=== PATIENT | female | born 1960 | race Caucasian/White ===

== ENCOUNTER 2022-11-09 10:24 | Outpatient (CLI) | payer BC, SELFPAY ==
[2022-11-09 10:33] VITALS: BP 143/91; PULSE 66; RESP 16; TEMP 36.6; O2SAT 93
--- NOTE | 2022-11-09 13:15 | PC.NURSE ---
WOUND VAC DRESSING CHANGE COMPLETED ON 11/09 AT 1033. PATIENT HAD FRIEND WITH FOR EDUCATION AND BANDOLEER PACKER SHOWED HOW TO CHANGE PROPERLY. ALSO EDUCATED ON WET TO DRY DRESSING CHANGES IF WOUND VAC MALFUNCTION AND CANT BE SEEN RIGHT AWAY. PATIENT AND CG VERBALIZED UNDERSTANDING. SENT WITH EXTRA WOUND CARE SUPPLIES FOR WET TO DRY - 1 ROLL KERLIX, REMAINDER OF SALINE BOTTLE FROM DRESSING CHANGE, 4X4 GAUZE PACK, 2 ABD'S, ROLL OF PAPER TAPE. PRESCRIPTION SENT WITH PATIENT FOR OXY TO PRE MEDICATE 30 MIN-1 HR PRIOR TO DRESSING CHANGE. PT VERBALIZED UNDERSTANDING.
== END 2022-11-09 13:21 | disposition home or self-care (01) ==
LOC: MS OUT 10:29 → MEDSURG 10:36 → MS OUT 13:20
PROVIDERS: PCP Family Medicine; Visit Provider Surgery
DX: E66.9 Obesity, unspecified (principal); L03.311 Cellulitis of abdominal wall; I10 Essential (primary) hypertension
CPT/HCPCS: 99211

== ENCOUNTER 2022-11-14 09:37 | Outpatient (CLI) | payer BC, SELFPAY | END 2022-11-14 09:38 | disposition home or self-care (01) | PROVIDERS: PCP Family Medicine; Visit Provider Surgery | DX: M72.6 Necrotizing fasciitis (principal); B96.6 Bacteroides fragilis [B. fragilis] as the cause of diseases classified elsewhere | CPT/HCPCS: 11042; 11045; 97605 ==

== ENCOUNTER 2022-11-21 08:02 | Outpatient (CLI) | payer BC, SELFPAY | END 2022-11-21 08:03 | disposition home or self-care (01) | LOC: WOUND 08:02 | PROVIDERS: PCP Family Medicine; Visit Provider Surgery | DX: M72.6 Necrotizing fasciitis (principal) | CPT/HCPCS: 97597; 97605 ==

== ENCOUNTER 2022-11-28 08:31 | Outpatient (CLI) | payer BC, SELFPAY | END 2022-11-28 08:32 | disposition home or self-care (01) | LOC: WOUND 08:31 | PROVIDERS: PCP Family Medicine; Visit Provider Surgery | DX: M72.6 Necrotizing fasciitis (principal) | CPT/HCPCS: 97605; 99213 ==

== ENCOUNTER 2022-12-05 11:38 | Outpatient (CLI) | payer BC, SELFPAY | END 2022-12-05 11:39 | disposition home or self-care (01) | LOC: WOUND 11:38 | PROVIDERS: PCP Family Medicine; Visit Provider Surgery | DX: M72.6 Necrotizing fasciitis (principal) | CPT/HCPCS: 97597; 97605 ==

== ENCOUNTER 2022-12-12 09:09 | Outpatient (CLI) | payer BC, SELFPAY | END 2022-12-12 09:10 | disposition home or self-care (01) | LOC: WOUND 09:09 | PROVIDERS: PCP Family Medicine; Visit Provider Surgery | DX: M72.6 Necrotizing fasciitis (principal) | CPT/HCPCS: 97602 ==

== ENCOUNTER 2022-12-26 08:52 | Outpatient (CLI) | payer BC, SELFPAY | END 2022-12-26 08:53 | disposition home or self-care (01) | LOC: WOUND 08:52 | PROVIDERS: PCP Family Medicine; Visit Provider Surgery | DX: M72.6 Necrotizing fasciitis (principal) | CPT/HCPCS: 97597; 99212 ==

== ENCOUNTER 2022-12-31 11:22 | Outpatient (CLI) | payer BC, SELFPAY | END 2022-12-31 11:23 | disposition home or self-care (01) | LOC: WOUND 11:22 | PROVIDERS: PCP Family Medicine; Visit Provider Surgery | DX: M72.6 Necrotizing fasciitis (principal) | CPT/HCPCS: 99211 ==

== ENCOUNTER 2023-01-02 08:10 | Outpatient (CLI) | payer BC, SELFPAY | END 2023-01-02 08:11 | disposition home or self-care (01) | LOC: WOUND 08:10 | PROVIDERS: PCP Family Medicine; Visit Provider Surgery | DX: M72.6 Necrotizing fasciitis (principal) | CPT/HCPCS: 99212 ==

== ENCOUNTER 2023-02-14 07:09 | Day surgery (SDC) | payer BC, SELFPAY ==
[2023-02-14] VITALS (7 sets, daily range): BP systolic 121–134; BP diastolic 67–78; PULSE 57–70; RESP 16; TEMP 36.4–36.9; O2SAT 96–99; BMI 68.3
[2023-02-14] MEDS: LACTATED RINGERS 1000 ML 1,000 ML 100 ML IV (07:25)
[2023-02-14] MEDS: SODIUM CHLORIDE 0.9 % (FLUSH) 10 ML SYRINGE IVF (07:38)
[2023-02-14] MEDS: SCOPOLAMINE 1 MG/3 DAY PATCH 1 PATCH TRANSDERMA (07:47)
--- NOTE | 2023-02-14 08:26 | W.PM.H&PU ---
History & Physical Update History & Physical Update H&P Reviewed and patient assessed: No changes noted H&P Updates: Preoperative diagnosis: Postmenopausal bleeding with thickened endometrial stripe on ultrasound Planned procedures: Hysteroscopy, possible polypectomy, dilation and curettage Physical exam: General: No acute distress Psych: Alert and oriented x3, full affect HEENT: Normocephalic, atraumatic Heart: Regular rate and rhythm, no murmur rub or gallop Lungs: Clear to auscultation bilaterally Type and screen pending
[2023-02-14] MEDS: LIDOCAINE 1% MDV 10 ML INJECTION (09:24)
--- NOTE | 2023-02-14 09:53 | W.ANESCHARGE ---
Anesthesia Charges Start Date/Time Anesthesia Start Date: 02/14/23 Anesthesia Start Time: 08:59 Stop Date/Time Anesthesia Stop Date: 02/14/23 Anesthesia Stop Time: 09:53
--- NOTE | 2023-02-14 09:54 | W.ANESCHARGE ---
Anesthesia Charges Start Date/Time Anesthesia Start Date: 02/14/23 Anesthesia Start Time: 08:59 Stop Date/Time Anesthesia Stop Date: 02/14/23 Anesthesia Stop Time: 09:53
--- NOTE | 2023-02-14 10:12 | P.GYNPRC_ITS ---
Procedure Note Date of procedure: 02/14/23 Pre-op diagnosis: Postmenopausal bleeding Post-op diagnosis: other (Endometrial polyps) Procedure: Hysteroscopy Polypectomy Dilation and visual curettage Anesthesia: MAC and local (Paracervical block with 10 cc 1% lidocaine) Complications: None Surgeon: Alexia Cuba MD Steam Tunnel Feeder: Anna Sorto Estimated blood loss (mL): 5 IV fluids (mL): 600 Urine Output (mL): 100 Pathology: specimen obtained, sent to pathology Condition: stable Disposition: same day Findings: Saline deficit: 95 mL 1. Upon pelvic exam under anesthesia, the cervix and vagina were normal in appearance. Bimanual exam was otherwise limited by patient habitus. 2. Upon hysteroscopy, the endocervix was normal appearance. The endometrial cavity was of normal shape. Tubal ostia were normal in appearance. It exhibited diffusely thickened endometrium with several small endometrial polyps, the largest approximately 1 cm and in the anterior left lower uterine segment. Procedure Description: Patient was taken to the operating room with IV running. She was positioned in dorsal lithotomy position with her legs fully supported in Yellofin stirrups. Monitored anesthesia care was administered. She was prepped and draped in the usual sterile fashion. Exam under anesthesia was performed for the above-noted findings. Speculum was inserted. Cervix visualized and grasped along the anterior lip with a single-tooth tenaculum. Paracervical block was performed. Cervix was serially dilated to accommodate the TRUCLEAR hysteroscope. This was assembled with saline inflow and outflow in place. The line was flushed of bubbles. The hysteroscope was advanced through the cervix into the endometrial cavity for the above noted findings. The tissue morcellator was then inserted through the operating channel. Window lock was performed. Under direct visualization, the endometrial cavity was circumferentially curetted with the tissue morcellator. The hysteroscope and morcellator were then removed from the uterus. Tenaculum was removed from the anterior lip of cervix. Hemostasis was noted. Patient tolerated procedure well. She was taken to recovery area in stable condition.
[2023-02-14 10:33] LABS: Appearance Urine Clear (Clear); Bilirubin Urine Negative (Negative); Blood Urine Negative (Negative); Color Urine Yellow (Yellow); Glucose Urine Negative (Negative); Ketones Urine Negative (Negative); Leukocyte Esterase Urine Negative (Negative); Nitrite Urine Negative (Negative); Protein Urine Negative (Negative); Urobilinogen Urine 0.2 (0.2-1.0)
== END 2023-02-14 11:29 | disposition home or self-care (01) ==
PROVIDERS: PCP Family Medicine; Visit Provider Obstetrics & Gynecology
PROC: 0UDB8ZZ Extraction of Endometrium, Via Natural or Artificial Opening Endoscopic (ICD-10-PCS; CPT 58558; principal; 2023-02-14 08:30)
DX: N95.0 Postmenopausal bleeding (principal); N84.0 Polyp of corpus uteri
CPT/HCPCS: 58558; 00952; 36415; 81003; 86850; 86900; 86901; 87086; 87186; 88305; A9270; J1100; J1885; J2250; J2405; J2704; J3010; J3490; J7120

== ENCOUNTER 2023-02-16 16:12 | Outpatient (CLI) | payer BC, SELFPAY | END 2023-02-16 16:13 | disposition home or self-care (01) | PROVIDERS: PCP Family Medicine; Visit Provider Registered Nurse | DX: H57.02 Anisocoria (principal) | CPT/HCPCS: 85651; 86140 ==

== ENCOUNTER 2024-11-01 10:17 | Emergency (ER) | payer BC, SELFPAY ==
[2024-11-01 10:25] VITALS: BP 130/81; PULSE 62; RESP 18; TEMP 36.3; O2SAT 96; BMI 73.5
--- NOTE | 2024-11-01 10:40 | CRLHL7_ITS ---
For Patients: As a result of the Century Cures Act, medical imaging exams and procedure reports are released immediately into your electronic medical record. You may view this report before your referring provider. If you have questions, please contact your health care provider. INDICATION: Dizziness, vertigo since yesterday TECHNIQUE: Noncontrast axial CT of the head. Coronal and sagittal reformats. Bone and soft tissue algorithms. COMPARISON: CT head report 09/17/2024 FINDINGS: The ventricles and cortical sulci appear age-appropriate. No midline shift or mass effect. No acute intracranial hemorrhage or extra-axial fluid collection. Hickman-white matter differentiation is grossly maintained. White matter attenuation is within normal limits. Intracranial vessels are unremarkable for technique. Sella and pituitary gland have a normal appearance. The calvarium appears grossly intact. Hyperostosis frontalis interna. Smooth rightward nasal septal deviation. Paranasal sinuses and mastoid air cells are clear. Orbits are unremarkable. IMPRESSION: 1. No CT evidence of acute intracranial abnormality, or significant interval change relative to 09/17/2024. Please note that all CT scans at this facility use dose modulation, iterative reconstruction, and/or weight-based dosing when appropriate to reduce radiation dose to as low as reasonably achievable. Dictated by Cordelia Randolph MD @ 11/01/2024 11:14:34 AM (Electronically Signed)
--- NOTE | 2024-11-01 10:41 | ED.GENADULT ---
HPI - General Adult General Chief complaint: Dizziness/Vertigo Stated complaint: dizziness, nausea Time Seen by Provider: 11/01/24 10:34 History of Present Illness HPI narrative: Patient is a 64 white female has history of hypertension, elevated BMI, palpitations, presents with vertigo. Onset today, the patient denies any different activities. She has had a history of vertigo and dizziness in the past. In fact she reports she had a CT scan a few weeks ago for ?dizziness?. Patient has no other systemic signs of illness no focal neurologic deficit, no visual problem no facial asymmetry, word-finding inability. No facial weakness. No arm or leg weakness she has been ambulating. She feels worse when she lays down and turns her head or sits up quickly. She does not feel quite normal even sitting up but does not feel vertiginous. No chest pain, no shortness of breath, no leg swelling or edema. Related Data Home Medications ?Medication ?Instructions ?Recorded ?Confirmed aspirin 81 mg capsule 81 mg PO DAILY 11/03/22 05/04/24 fexofenadine 180 mg tablet 180 mg PO DAILY 11/03/22 05/04/24 hydrochlorothiazide 25 mg tablet 25 mg PO DAILY 11/03/22 05/04/24 lisinopril 20 mg tablet 20 mg PO DAILY 11/03/22 05/04/24 omeprazole 20 mg capsule,delayed 20 mg PO BID 11/03/22 05/04/24 release allopurinol 100 mg tablet 300 mg PO DAILY 12/28/22 05/04/24 Previous Rx's ?Medication ?Instructions ?Recorded ibuprofen 600 mg tablet 600 mg PO Q6H PRN #30 tabs 02/14/23 fluticasone propionate 50 2 spray intranasal Q12H #16 grams 09/07/23 mcg/actuation nasal spray,suspension levocetirizine 5 mg tablet 5 mg PO QPM #30 tabs 09/07/23 benzonatate 100 mg capsule 100 mg PO TID PRN cough #30 caps 05/04/24 meclizine 25 mg chewable tablet 12.5 mg (1/2 x 25 mg) PO TID PRN 11/01/24 (Antivert) #10 tabs ondansetron HCl 4 mg tablet 4 mg PO Q8H PRN nausea and 11/01/24 vomiting 3 days #10 tabs Allergies Allergy/AdvReac Type Severity Reaction Status Date / Time codeine Allergy Intermediate Verified 11/01/24 10:25 Review of Systems Status of ROS: Reports: 6 or more systems reviewed and unremarkable except as noted in History and below [facility] Medical History Postmenopausal bleeding ?N95.0 - Postmenopausal bleeding (ICD-10) Adenomatous colon polyp ?D12.6 - Benign neoplasm of colon, unspecified (ICD-10) Elbow fracture, left ?S42.402A - Unspecified fracture of lower end of left humerus, initial encounter for closed fracture (ICD-10) History of adverse reaction to anesthesia ?Z92.89 - Personal history of other medical treatment (ICD-10) Osteoarthritis ?M19.90 - Unspecified osteoarthritis, unspecified site (ICD-10) Obstructive sleep apnea ?G47.33 - Obstructive sleep apnea (adult) (pediatric) (ICD-10) Obesity ?E66.9 - Obesity, unspecified (ICD-10) Allergic rhinitis ?J30.9 - Allergic rhinitis, unspecified (ICD-10) Gastroesophageal reflux disease ?K21.9 - Gastro-esophageal reflux disease without esophagitis (ICD-10) Hypertension ?I10 - Essential (primary) hypertension (ICD-10) Surgical History S/P debridement ?Z98.890 - Other specified postprocedural states (ICD-10) History of carpal tunnel release ?Z98.890 - Other specified postprocedural states (ICD-10) History of colonoscopy ?Z98.890 - Other specified postprocedural states (ICD-10) History of laparoscopic cholecystectomy ?Z90.49 - Acquired absence of other specified parts of digestive tract (ICD-10) History of bilateral knee arthroplasty ?Z96.653 - Presence of artificial knee joint, bilateral (ICD-10) Family History Father Alcohol dependence COPD (chronic obstructive pulmonary disease) Cardiovascular disease Diabetes Mother Breast cancer Social History Narrative: 62-year-old female lives independently. 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 She does not smoke. She rarely drinks alcohol. Last tetanus vaccine was in September of 2015. Code status is full. Her friend, Claudia, is primary medical contact What is your current living situation?: I presently have a place to live Problems where you live: no known problems In the past 12 months, utilities in danger of being shut off: no In past 12 months, lack of transportation kept you from medical appts, meetings, work, or getting things needed for daily living: no In the past 12 mos, have been you worried that your food would run out before you had money to buy more?: never true In the past 12 mos, the food you bought just didn't last and you didn't have money to buy more?: never true Highest level of school completed/degree received: high school graduate Smoking Status: Never smoker Do you use any of these nicotine containing products: None Second hand tobacco smoke exposure: No How often do you have a drink containing alcohol: monthly or less How many standard drinks containing alcohol do you have on a typical day: 1 or 2 How often do you have six or more drinks on one occasion: Never AUDIT-C Alcohol total score: 1 Non-prescribed substance use: denies use Caffeine: No How often does anyone, including family, friends and others, physically hurt you: never How often does anyone, including family, friends and others, insult or talk down to you: never How often does anyone, including family, friends and others, threaten you with harm: never How often does anyone, including family, friends and others, scream or curse at you: never Are you using contraception or practicing any form of control: No service: No Exam Narrative: Exam Narrative: Objective: Patient's vital signs are within normal limits Alert orient x3 no apparent distress Elevated BMI No facial asymmetry tongue protrudes midline, smile is normal and symmetric No forehead asymmetry Neck is supple Pulse regular Heart rhythm regular heart murmur Extremities no focal neurologic deficit, no weakness in her arms or legs reported. Const: Vital Signs, click to edit/add: Vital Signs - 24 hr 11/01/24 10:25 Temperature 97.4 F L Pulse Rate [Pulse Oximeter] 62 Respiratory Rate 18 Blood Pressure [Ri ght Upper Arm] 130/81 Pulse Oximetry 96 Oxygen Delivery Me thod Room Air Course Vital Signs Vital signs: Initial Vital Signs Temperature 97.4 F L 06/01/25 10:25 Temperature Source Temporal Artery Scan 11/01/24 10:25 Pulse Rate 62 11/01/24 10:25 Respiratory Rate 18 11/01/24 10:25 Blood Pressure 130/81 11/01/24 10:25 Blood Pressure Mean 97 11/01/24 10:25 Pulse Oximetry 96 11/01/24 10:25 Oxygen Delivery Method Room Air 11/01/24 10:25 Vital Signs Temperature 97.4 F L 11/01/24 10:25 Pulse Rate 62 11/01/24 10:25 Respiratory Rate 18 11/01/24 10:25 Blood Pressure 130/81 11/01/24 10:25 Pulse Oximetry 96 11/01/24 10:25 Oxygen Delivery Method Room Air 11/01/24 10:25 Temperature 97.4 F L 11/01/24 10:25 Pulse Rate 62 11/01/24 10:25 Respiratory Rate 18 11/01/24 10:25 Blood Pressure 130/81 11/01/24 10:25 Pulse Oximetry 96 11/01/24 10:25 Oxygen Delivery Method Room Air 11/01/24 10:25 Medications Administered Medications: Generic Name Dose Route Start Last Admin Trade Name Freq PRN Reason Stop Dose Admin Ondansetron HCl 4 mg 11/01/24 11:38 11/01/24 11:43 Ondansetron 2 Mg/Ml Inj IVP 11/01/24 11:39 4 mg ONCE ONE Administration Discontinued Medications Generic Name Dose Route Start Last Admin Trade Name Freq PRN Reason Stop Dose Admin Sodium Chloride 1,000 mls @ 6,000 mls/hr 11/01/24 10:45 11/01/24 11:47 0.9 % Sodium Chloride 1000 Ml IV 11/01/24 10:54 Infused .Q10M MONSERRAT Infusion Lorazepam 1 mg 11/01/24 10:40 11/01/24 11:03 Lorazepam 1 Mg Tablet PO 11/01/24 10:41 1 mg ONCE ONE Administration Medical Decision Making MDM Narrative Medical decision making narrative: [age] year white female with a history of hypertension elevated BMI with intermittent vertiginous symptoms in the past as well as recent CT scan in the a few weeks ago for ?dizziness?. At this point the patient does not appear stroke-like, but I think a CT scan with of her head would be appropriate to repeat given this seems like a worse case of vertigo. Will give her oral Ativan 1 mg as there is a shortage of IV Ativan, will give 1 L normal saline. Will check electrolytes and labs. Disposition pending findings and her clinical response. Addendum 11:45 a.m.: The patient feels better, got IV fluid, Ativan orally, still has a little bit of nausea will give her some Zofran IV. She got all its fluid bolus as well. She feels less dizzy and more confident. I think we can let her have some Zofran and Antivert at home as needed use sparingly, light activity for the next couple of days follow-up with primary care in the next 2-3 days as needed return to ED sooner problems or concerns. Of note is head CT reviewed by me is negative, radiologist interpreted as negative as well thanks Lab Data Labs: Lab Results 11/01/24 Range/Units 10:45 WBC 5.16 (4.50-11.00) K/uL RBC 4.13 (4.00-5.20) m/uL Hgb 12.4 (12.0-16.0) gm/dL Hct 38.7 (33.0-51.0) % MCV 94 (80-100) fL MCH 30 (26-34) pg MCHC 32 (32-36) gm/dL RDW Coeff of S[place] 14.8 (11.5-15.5) % Plt Count 243 (140-440) K/uL Neut % (Auto) 64.2 (42.0-72.0) % Lymph % (Auto) 23.6 (20-44) % [place] % (Auto) 8.1 (0.0-11.0) % Eos % (Auto) 3.1 (0.0-7.0) % Baso % (Auto) 0.4 (0.0-3.0) % Neut # (Auto) 3.31 (1.7-7.0) K/uL Lymph # (Auto) 1.22 (0.90-2.90) K/uL [place] # (Auto) 0.40 (0.00-0.90) K/UL Eos # (Auto) 0.16 (0.00-0.50) K/uL Baso # (Auto) 0.02 (0.00-0.30) K/uL Abs Immat Gran (auto) 0.03 (0.00-0.30) K/uL Imm/Tot Granulo (auto) 0.6 % Sodium 141 (135-149) mmol/L Potassium 4.2 (3.6-5.1) mmol/L Chloride 103 (96-114) mmol/L Carbon Dioxide 30 (20-32) mmol/L Anion Gap 8 (7-15) mEq/L BUN 21 (7-30) mg/dL Creatinine 1.1 (0.5-1.5) mg/dL Estimated Creat Clear 43.87 Estimated GFR 57 ml/min Glucose 114 (60-115) mg/dL Calcium 9.6 (8.4-10.6) mg/dL Total Bilirubin 0.8 (0.1-1.5) mg/dL Direct Bilirubin 0.4 (0.0-0.5) mg/dL AST 38 H (12-35) U/L ALT 30 (4-35) U/L Alkaline Phosphatase 72 (40-150) U/L C-Reactive Protein 2.5 H (0.5-1.0) mg/dL Total Protein 8.3 (6.0-8.3) g/dL Albumin 4.3 (3.3-5.0) g/dL Discharge Plan Discharge Clinical Impression: Vertigo Patient Disposition: Home w/ Parent or Adult Condition: Improved Additional Instructions: Rest, light activity, Zofran and Antivert as needed. Follow up with regular doctor next 2-3 days, resume activities as tolerated. Activity Level: Light activity Discharge Diet: Heart Healthy (2 gm sodium, low fat) Prescriptions: New meclizine [Antivert] 25 mg tablet,chewable 12.5 mg PO TID PRNQty: 10 0RF ondansetron HCl 4 mg tablet 4 mg PO Q8H PRN (Reason: nausea and vomiting) 3 Days Qty: 10 0RF No Action allopurinol 100 mg tablet 300 mg PO DAILY fluticasone propionate 50 mcg/actuation spray,suspension 2 spray intranasal Q12H Qty: 16 0RF Rx Instructions: administer into each nostril - OK to move to once daily if nostrils get dry levocetirizine 5 mg tablet 5 mg PO QPM Qty: 30 3RF benzonatate 100 mg capsule 100 mg PO TID PRN (Reason: cough) Qty: 30 1RF lisinopril 20 mg tablet 20 mg PO DAILY omeprazole 20 mg capsule,delayed release(DR/EC) 20 mg PO BID hydrochlorothiazide 25 mg tablet 25 mg PO DAILY fexofenadine 180 mg tablet 180 mg PO DAILY aspirin 81 mg capsule 81 mg PO DAILY ibuprofen 600 mg tablet 600 mg PO Q6H PRNQty: 30 0RF Follow Up/Referrals: Michell Christopher DO [Primary Care Provider, Family Practice] Stand Alone Forms: [facility] Info Instructions
--- OUTSIDE RECORDS SUMMARY | 2024-11-01 10:45 | XMS_ITS | Clinical Summary ---
Author Organization [facility] Address [address] [place] [address] Care Team Providers Care Textile Converter Name Role Phone Michell Christopher Primary Care Provider Allergies No known active allergies Medications aspirin (ECOTRIN) 81 mg enteric coated tablet Take 1 Tablet (81 mg) by mouth once daily with a meal. 0 11/14/19 22 Active fluticasone (50 mcg per actuation) nasal solution (FLONASE) INSTILL 2 SPRAYS INTRANASALLY EVERY 12 HOURS INTO NOSTRILS, MOVE TO ONCE DAILY IF NOSTRILS GET TO DRY. 09/07/19 24 Active CPAPIndications: YELENA (obstructive sleep apnea) CPAP machine for home use at pressure 5-16 cm, choice of mask; TJN=344t, Frequency of use=daily 1 Each 11/14/19 24 Active tirzepatide (weight loss) (Zepbound) 2.5 mg/0.5 mL penIndications:O SA on CPAP,Moderate obstructive sleep apnea in adult,Class 3 severe obesity with body mass index (BMI) of 60.0 to 69.9 in adult (HC) Inject 2.5 mg subcutaneous once weekly for 28 days. 2 mL 10/06/19 25 025 Active tirzepatide (weight loss) (Zepbound) 5 mg/0.5 mL penIndications:O SA on CPAP,Moderate obstructive sleep apnea in adult,Class 3 severe obesity with body mass index (BMI) of 60.0 to 69.9 in adult (HC) Inject 5 mg subcutaneous once weekly for 28 days. 2 mL 11/03/19 25 025 Active tirzepatide (weight loss) (Zepbound) 7.5 mg/0.5 mL penIndications:O SA on CPAP,Moderate obstructive sleep apnea in adult,Class 3 severe obesity with body mass index (BMI) of 60.0 to 69.9 in adult (HC) Inject 7.5 mg subcutaneous once weekly for 28 days. 2 mL 12/01/19 25 025 Active tirzepatide (weight loss) (Zepbound) 10 mg/0.5 mL penIndications:O SA on CPAP,Moderate obstructive sleep apnea in adult,Class 3 severe obesity with body mass index (BMI) of 60.0 to 69.9 in adult (HC) Inject 10 mg subcutaneous once weekly for 28 days. 2 mL 12/29/19 25 025 Active tirzepatide (weight loss) (Zepbound) 12.5 mg/0.5 mL penIndications:O SA on CPAP,Moderate obstructive sleep apnea in adult,Class 3 severe obesity with body mass index (BMI) of 60.0 to 69.9 in adult (HC) Inject 12.5 mg subcutaneous once weekly for 28 days. 2 mL 01/26/20 25 025 Active tirzepatide (weight loss) (Zepbound) 15 mg/0.5 mL penIndications:O SA on CPAP,Moderate obstructive sleep apnea in adult,Class 3 severe obesity with body mass index (BMI) of 60.0 to 69.9 in adult (HC) Inject 15 mg subcutaneous once weekly. 6 mL 3 02/23/20 25 Active allopurinoL 300 mg tabletIndication s:Gouty arthritis of left great toe TAKE ONE TABLET (300 MG) BY MOUTH ONCE DAILY. 90 Tablet 3 10/07/19 25 Active fexofenadine 180 mg tabletIndication s:Seasonal allergies Take 180 mg by mouth once daily. Do not crush or chew. 90 Tablet 2 10/07/19 25 Active hydroCHLOROthiaz devonte 25 mg tabletIndication s:Essential hypertension Take 1 Tablet (25 mg) by mouth once daily. 90 Tablet 3 10/07/19 25 Active lisinopriL 20 mg tabletIndication s:Essential hypertension Take 1 Tablet (20 mg) by mouth once daily. 90 Tablet 2 10/07/19 25 Active fluticasone (50 mcg per actuation) nasal solution (FLONASE)Indicat ions:Seasonal allergic rhinitis, unspecified trigger Inhale 2 Sprays in both nostrils once daily. 16 g 3 10/07/19 25 Active omeprazole 20 mg Delayed-Release capsuleIndicatio ns:Gastroesophag eal reflux disease without esophagitis once daily 90 Capsule 4 10/07/19 25 Active CPAPIndications: YELENA (obstructive sleep apnea) CPAP (E0601) machine for home use at pressure: 5-16 cm , Choice of mask (A7030 or A7034) w/full face cushion (A7031) x1-2/mo, nasal cushion (A7032) x2/mo, or nasal pillows (A7033) x 2/mo; Length of Need: 99 months; Frequency of use: Daily 1 Each 3 07/13/19 25 Active fexofenadine (PAOLA) 180 mg tabletIndication s:Seasonal allergies TAKE ONE TABLET (180MG) BY MOUTH ONCE DAILY. 90 Tablet 2 11/23/19 24 025 Discontin ued(Reord er (E-cancel not sent)) fluticasone (50 mcg per actuation) nasal solution (FLONASE)Indicat ions:Seasonal allergic rhinitis, unspecified trigger Inhale 2 Sprays to both nostrils once daily. 16 g 3 12/30/19 24 025 Discontin ued(Reord er (E-cancel not sent)) hydroCHLOROthiaz devonte 25 mg tabletIndication s:Essential hypertension Take 1 Tablet (25 mg) by mouth once daily. 90 Tablet 3 12/30/19 24 025 Discontin ued(Reord er (E-cancel not sent)) omeprazole (PRILOSEC) 20 mg Delayed-Release capsuleIndicatio ns:Gastroesophag eal reflux disease without esophagitis once daily 90 Capsule 4 12/30/19 24 025 Discontin ued(Reord er (E-cancel not sent)) allopurinoL (ZYLOPRIM) 300 mg tabletIndication s:Gouty arthritis of left great toe TAKE ONE TABLET (300 MG) BY MOUTH ONCE DAILY. 90 Tablet 3 02/14/20 24 025 Discontin ued(Reord er (E-cancel not sent)) lisinopriL (PRINIVIL; ZESTRIL) 20 mg tabletIndication s:Essential hypertension TAKE 1 TABLET (20 MG) BY MOUTH ONCE DAILY. 90 Tablet 2 05/20/20 24 025 Discontin ued(Reord er (E-cancel not sent)) Active Problems Problem Noted Date Diagnosed Date s/p left total knee arthropl asty on 09/01/2021 with Minesh Thompson MD 09/05/2021 s/p right total knee arthrop lasty on 07/17/2021 with Minesh Thompson MD 07/24/2021 Osteoarthritis of right knee 07/17/2021 Primary osteoarthritis of both knees 12/28/2020 History of COVID-19 11/14/2020 Overview (11/14/2020): March 2020 Adenomatous colon polyp 03/05/2017 Overview (11/09/2020): Colonoscopy 03/2017 multiple polyps repeat in 3 months at [facility] Colonoscopy 05/2017 polyps repeat in 3 years Colonoscopy 11/2020 polyp, repeat in 5 years HTN (hypertension) 03/06/2016 YELENA 10/02/2015 AHI-20, REM 60 10/27/2015 Obesity, morbid, BMI 50 or higher 10/27/2015 Allergic rhinitis, cause unspecified 04/05/2011 GERD (gastroesophageal reflux disease) 1 Resolved Problems Problem Noted Date Diagnosed Date Resolved Date History of adverse reaction to anesthesia 12/30/2023 12/30/2023 Necrotizing fasciitis 12/30/20232023 Encounters Date Type Department Care Team Description 10/14/2024 Telephone [facility] [address] [place] [address] Michell Christopher DO Prior Authorization (tirzepatide (weight loss) (Zepbound) 2.5 mg/0.5 mL pen Approved 09/15/24-10/15/25) 10/12/2024 Refill [facility] [address] [place] [address] Rhiannon Jose PA Refill Request (cpap rx) 10/05/2024 2:40 PM CDT Office Visit [facility] [address] [place] [address] CandiMichell, Weight 10/05/2024 Travel 09/30/2024 Travel 09/23/2024 Travel 09/17/2024 11:00 AM CDT Ancillary Procedure [facility] [address] [place] [address] 09/17/2024 10:15 AM CDT Office Visit [facility] [address] [place] [address] Fern Bell PA Dizziness 09/17/2024 Travel from Last 3 Months Immunizations Immunization Administration Dates Next Due COVID-19 vaccine (Moderna 100mcg/0.5mL) PF, MDV 12/07/2021,05/08/2021,08/25/2020,2020 COVID-19 vaccine (Pfizer-Bio NTech 30mcg/0.3mL) 12YO+ BIVALENT PF, MDV 10/03/2022 Influenza A (H1N1), Inactivated 05/05/2009 Influenza, IIV3 (Age 6-35 mos) 04/17/2015,2009,02/03/2009 Influenza, IIV3 (Age >=3 years) 04/05/2011 Influenza, IIV4 03/10/2021, 9,06/02/2018,2015 Influenza, IIV4 (=>6mos) MDV 04/11/2020,05/19/20 19 Td, Preservative Free (age > = 7 Years) 06/18/2006 Tdap 09/21/2015,06/03/2005 Zoster (Shingrix-RZV, recombinant) 11/16/2019, Family History Medical History Relation Name Comments Alcohol/Drug Father Morgan Diabetes Father Morgan Heart Disease Father Morgan chf Cancer Maternal Aunt 1 lymphoma Cancer Maternal Aunt 2 rectal melan adeel Cancer Maternal Grandfather Aba Lymphom a Heart Disease Maternal Grandmother Dara chf Cancer-breast Mother Thelma Stroke Paternal Grandmother Reyna mini st rokes and then pneumonia Heart Disease Paternal Uncle 2 mi Alcohol/Drug Sister 1 [place] (twin) COPD Sister 1 [place] Relation Name Status Comments Brother 1 Pat Alive Brother 2 Amando Alive Father Morgan (Age 78) Unknown CO D, hx of renal dialysis Maternal Aunt 1 Maternal Aunt 2 Maternal Grandfather Aba Maternal Grandmother Dara Mother Thelma Alive Paternal Grandfather Paternal Grandmother Reyna Paternal Uncle 1 don Paternal Uncle 2 Sister 1 [place] Alive Sister 2 Deborah Alive Sister 3 Leda Alive Social History Tobacco Use Types Packs/Day Years Used Date Smoking Tobacco: Never Smokeless Tobacco: Never Tobacco Cessation:Counseling Given: Yes Alcohol Use Standard Drinks/Week Comments Yes 0 (1 standard drink = 0.6 oz pur e alcohol) Rare- small glass of wine PHQ-2 Answer Date Recorded PHQ-2 TOTAL SCORE 4 12/30/2023 Social Connections Answer Date Recorded Do you often feel lonely or isolated from those around you? 0 12/11/2023 Financial Resource Strain Answer Date R ecorded Difficulty of Paying Living Expenses 3 01/30/2023 Difficulty of Paying Living Expenses Not on file 01/30/2023 Food Insecurity Answer Date Recorded Do you worry your food will run out before you are able to buy more? 1 12/11/2023 Transportation Needs Answer Date Record ed Does lack of transportation keep you from medica l appointments? 1 12/11/2023 Does lack of transportation keep you from work, meetings or getting things that you need? 1 12/11/2023 Housing Stability Answer Date Recorded What is your housing situation today? 1 12/11/2023 Utilities Answer Date Recorded Do you have trouble paying f or utilities (for example, heat, electricity, water, phone)? 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 Gender Identity Not on file Sexual Orientation Not on file Occupation Industry Job Start Date Job End Date grab driver for public transit in [place] Not on file Not on file Not on file Travel History Travel Start Travel End [place] 10/03/2024 10/03/2024 Obstetrics History Para Term AB IAB SAB Ectopic Multiple Livin g Live Births 0 0 0 0 0 0 0 0 0 0 Last Filed Vital Signs Vital Sign Reading Time Taken Comments Blood Pressure 121/80 10/05/2024 2:58 PM CDT Pulse 83 10/05/2024 2:58 PM CDT Temperature 36.6 C (97.9 F) 10/27/2021 2:20 PM CDT Respiratory Rate 16 09/02/2021 7:36 AM CDT Oxygen Saturation 96% 10/05/2024 2:58 PM CDT Inhaled Oxygen Concentration - - Weight 188.7 kg (416 lb) 10/05/2024 2:58 PM CDT Height 164.4 cm (5' 4.72) 10/05/2024 2:58 PM CD T Body Mass Index 69.82 10/05/2024 2:58 PM CDT Plan of Treatment Upcoming Encounters Date Type Department Care Team (Late st Contact Info) Description 11/13/2024 3:00 PM CDT Office Visit [facility] [address] [place] [phone] Rose Navarro PA [address] [place] [address] [address] [place], [place] [id number] 11/17/2024 8:20 AM CDT Office Visit [facility] [address] [place] [address] Ramses Sheffield MD [address] [place] [address] 12/30/2024 9:50 AM CDT Office Visit [facility] [address] [place] [address] Michell Christopher DO [address] [place] [address] Health Maintenance Due Date Last Done Comments Pneumococcal series for age 50+ (1 of 1 - PCV) 2012 Mammogram for age 45-75 10/26/2021 10/27/19 21, 08/18/2019, 06/02/2018, Additional history exists RSV vaccine for adults or (1 - Risk 60-74 years 1-dose series) 2022 COVID-19 vaccine series ( season) 2024 10/03/2022, 12/07/2021, 05/08/2021, Additional history exists Depression screening for age 12+ 12/29/2024 12/30/2023, 10/04/2022, 10/03/2022, Additional history exists Influenza Vaccine (Season Ended) 2025 03/10/2021, 04/11/2020, 05/19/2019, Additional history exists Tetanus booster 09/20/2025 09/21/2015, 06/03, 06/03/2005 BMI (ht and wt on same day) for age 18+ 10/05/2025 10/05/2024, 12/30/2023, 12/11/2023, Additional history exists Colonoscopy through age 75 11/07/202511/07, 11/07/2020, 05/20/2017, Additional history exists Pap test for age 21-65 12/29/2027 , 12/28/2022, 09/21/2015, Additional history exists Lipids for age 45-75 12/29/2028 12/30/2023, 10/09/2022, 09/16/2020, Additional history exists Tdap Completed 09/21/2015, 06/03/2005 Hepatitis C screening for age 18-79 Completed 08/18/2019 Zoster (shingles) series for age 50+ Completed 11/16/2019, 08/14/2019 HIV for age 15-65 Completed 10/09/2022 Hepatitis B series for 19+ Aged Out N o longer eligible based on patient's age to complete this topic Medical Devices Implanted Type Area Mosaic Worker Device Identifier Shelf Expiration Date Model / Serial / Lot Cmnt Bone Simplex P 1pk - [id number] Implanted:Qty: 2 on 07/17/2021 by Minesh Thompson MD at [facility] Right: Knee [employer] 09/01/2023 6191-1-001 / / [id number] Fem Rt Sz 3 Triathlon Cruc Retco Cr - [id number] Implanted:Qty: 1 on 07/17/2021 by Minesh Thompson MD at [facility] Right: Knee [employer] 03/13/2026 5510-F-302 / / [id number] Baseplate Tib Sz 3 Triathlon Pe - [id number] Implanted:Qty: 1 on 07/17/2021 by Minesh Thompson MD at [facility] Right: Knee [employer] 04/19/2026 5521-B-300 / / [id number] Implant Patellar [id number] Knee X3 Asymmetric Triathlon - [id number] Implanted:Qty: 1 on 07/17/2021 by Minesh Thompson MD at [facility] Right: Knee [employer] 04/24/2026 5551-G-299 -E / / [id number] Insert Tib Sz 3 13mm Knee X3 Condylar Stabilizing Triathlon - [id number] Implanted:Qty: 1 on 07/17/2021 by Minesh Thompson MD at [facility] Right: Knee [employer] 05/21/2026 5531-G-313 -E / / [id number] Insert Tib Sz 3 13mm Knee X3 Condylar Stabilizing Triathlon - [id number] Implanted:Qty: 1 on 09/01/2021 by Minesh Thompson MD at [facility] Left: Knee [employer] 05/21/2026 5531-G-313 -E / / [id number] Cmnt Bone Simplex P 1pk - [id number] Implanted:Qty: 2 on 09/01/2021 by Minesh Thompson MD at [facility] Left: Knee [employer] 11/01/2023 6191-1-001 / / [id number] Implant Patellar [id number] Knee X3 Asymmetric Triathlon - [id number] Implanted:Qty: 1 on 09/01/2021 by Minesh Thompson MD at [facility] Left: Knee [employer] 05/21/2026 5551-G-299 -E / / [id number] Fem Lt Sz 3 Triathlon Cruc Retco Cr - [id number] Implanted:Qty: 1 on 09/01/2021 by Minesh Thompson MD at [facility] Left: Knee [employer] 07/01/2026 5510-F-301 / / [id number] Baseplate Tib Sz 3 Triathlon Pe - [id number] Implanted:Qty: 1 on 09/01/2021 by Minesh Thompson MD at [facility] Left: Knee [employer] 06/20/2026 5521-B-300 / / [id number] Procedures Procedure Name Priority Date/Time Associated Diagnosis Comments CT HEAD BRAIN WO STAT 09/17/2024 11:0 6 AM CDT Dizziness Headache syndrome Essential hypertension LIPID PANEL W REFLEX MEASURED LDL Routine 12/30/2023 2:19 PM CDT Lipid screening HPV HIGH RISK Routine 12/28/2022 11:00 AM CDT LC HIV-1/O/2, 4TH GENERATION Routine 10/09/2022 7:41 AM CDT Screening for HIV (human immunodeficiency virus) COLONOSCOPY SCREENING Routine 11/07/2020 12:00 AM CDT History of colon polyps XR MAMMO RYLEY BILAT SCREEN Routine 10/26/2020 8:58 AM CDT Screening mammogram, encounter for ANTI HCV Routine 08/18/2019 8:28 AM CDT Encounter for hepatitis C screening test for low risk patient from Last 3 Months or Most Recently Relevant to Health Maintenance Results * CT HEAD BRAIN WO (09/17/2024 11:06 AM CDT) Anatomical Region Laterality Modality HEAD, BRAIN Computed Tomogra phy 09/17/2024 11:3 4 AM CDT Impressions 09/17/2024 11:34 AM CDT Chronic changes without acute intracranial abnormality. Please note that all CT scans at this facility use dose modulation, iterative reconstruction, and/or weight-based dosing when appropriate to reduce radiation dose to as low as reasonably achievable. Dictated by Aishwarya Justin MD @ 09/17/2024 11:34:32 AM (Electronically Signed) Narrative 09/17/2024 11:34 AM CDT For Patients: As a result of the Cures Act, medical imaging exams and procedure reports are released immediately into your electronic medical record. You may view this report before your referring provider. If you have questions, please contact your health care provider. INDICATION: Dizziness. TECHNIQUE: CT head without contrast. COMPARISON: None. FINDINGS: The hare-white matter is well-differentiated throughout. No acute intracranial hemorrhage or abnormal extra-axial fluid collection. The ventricles are of normal caliber. No midline shift. Scattered white matter hypodensities are nonspecific and likely related to chronic microvascular ischemic changes. Skull base and calvarium: The visualized paranasal sinuses and mastoid air cells demonstrate no acute or significant findings. The visualized orbits are grossly unremarkable. No skull fractures. Procedure Note Aishwarya Justin MD - 09/17/2024 For Patients: As a result of the Cures Act, medical imagingexams and procedure reports are released immediately into your electronicmedical record. You may view this report before your referring provider.If you have questions, please contact your health care provider. INDICATION: Dizziness. TECHNIQUE: CT head without contrast. COMPARISON: None. FINDINGS: The hare-white matter is well-differentiated throughout. No acuteintracranial hemorrhage or abnormal extra-axial fluid collection. Theventricles are of normal caliber. No midline shift. Scattered white matter hypodensities are nonspecific and likely related tochronic microvascular ischemic changes. Skull base and calvarium: The visualized paranasal sinuses and mastoid aircells demonstrate no acute or significant findings. The visualized orbitsare grossly unremarkable. No skull fractures. IMPRESSION: Chronic changes without acute intracranial abnormality. Please note that all CT scans at this facility use dose modulation,iterative reconstruction, and/or weight-based dosing when appropriate toreduce radiation dose to as low as reasonably achievable. Dictated by Aishwarya Justin MD @ 09/17/2024 11:34:32 AM (Electronically Signed) Fern EVANS CT Final Result * (ABNORMAL) LIPID PANEL W REFLEX MEASURED LDL (12/30/2023 2:19 PM CDT) CHOLESTEROL,TOTAL 176 100 - 199 mg/dL 12/31/2023 9:14 AM CDT [facility] Comment: Cholesterol, Total Reference Ranges Desirable <200 mg/dL Borderline 200-239 mg/dL High >=240 mg/dL TRIGLYCERIDES 191(H) <150 mg/dL 12/31/2023 9:14 AM CDT [facility] HDL CHOLESTEROL 44 >40 mg/dL 9:14 AM CDT [facility] NON-HDL CHOLESTEROL 132 <145 mg/dl 12/31/2023 9:14 AM CDT [facility] CHOL/HDL RATIO 4.00 <4.50 12/31/2023 9:14 AM CDT [facility] LDL CHOLESTEROL 94 <=130 mg/dL 12/31/2023 9:14 AM CDT [facility] VLDL CHOLESTEROL 38(H) <=30 mg/dL 12/31/2023 9:14 AM CDT [facility] PROVIDER ORDERED STATUS RANDOM 12/31/2023 9:14 AM CDT [facility] Blood BLOOD SPECIMEN / Unknown Venipuncture / Unknown 12/30/2023 2:19 PM CDT 12/30/2023 2:20 PM CDT us Michell Carpentert DO CHEMISTRY Final Resul t [facility] [address] [place] [address], * HPV HIGH RISK (12/28/2022 11:00 AM CDT) TYPE 16 Negative Negative 01/03/2023 12:02 PM CDT [facility] TYPE 18 Negative Negative 01/03/2023 12:02 PM CDT [facility] OTHER HIGH RISK TYPES Negative Negative 01/03/2023 12:02 PM CDT [facility] Other (Cervical) 12/28/2022 11:00 AM CDT 01/01/2023 10:48 AM CDT Narrative [facility] - 01/03/2023 12:02 PM CDT HPV types 16, 18, 31, 33, 35, 39, 45, 51, 52, 56, 58, 59, 66 and 68 DNA were undetectable or below the pre-set threshold. Methodology: Olivia Huy 4800 HPV Test us Alexia Cuba MD MICROBIOLOGY Final Res ult [facility] [address] [place] [address], * LC HIV-1/O/2, 4TH GENERATION (10/09/2022 7:41 AM CDT) HIV Scr 4th Gen Non Reactive Non Reactive 10/12/2022 4:08 AM CDT [facility] ([facility]) Comment: HIV Negative HIV-1/HIV-2 antibodies and HIV-1 p24 antigen were NOT detected. There is no laboratory evidence of HIV infection. Blood BLOOD SPECIMEN / Unknown Venipuncture / Unknown 10/09/2022 7:41 AM CDT 10/09/2022 7:41 AM CDT Narrative [facility] - 10/12/2022 4:08 AM CDT Performed at: [address] [place] [id number] Cat Cracker Operator: Tong Perez MD, Phone: [phone] us Michell Christopher DO LABORATORY Final Resul t [facility] ([facility]) [address] [place] [id number], * COLONOSCOPY SCREENING (11/07/2020 12:00 AM CDT) us Michell Carpentert DO GI PROCEDURE ORD Final Resu lt * XR MAMMO RYLEY BILAT SCREEN (10/26/2020 8:58 AM CDT) Anatomical Region Laterality Modality BREASTS, Breast Left, Breast Right Bilateral Mammography Impressions 10/26/2020 4:03 PM CDT There is no radiographic evidence for malignancy. Recommend annual mammograms. MAMMOGRAM ASSESSMENT: ACR 1 Negative PATIENTS: You will also receive a letter with your examination results in an easy to read format. If you have questions about your results, please contact your referring provider. Narrative 10/26/2020 4:03 PM CDT XR MAMMO RYLEY BILAT SCREEN [[id number]] CLINICAL HISTORY: This is an asymptomatic 60 y.o. patient. INDICATION FOR EXAM: Mammogram Screening. TECHNIQUE: CC & MLO views were obtained. This study was evaluated with the assistance of Computer-Aided Detection. Breast Tomosynthesis was used in interpretation. COMPARISON FILM: [facility] FINDINGS: The breasts are almost entirely fatty. There are no dominant masses, suspicious micro calcifications or areas of architectural distortion. Michell Christopher DO MAMMO Final Resul t * ANTI HCV (08/18/2019 8:28 AM CDT) HEPATITIS C ANTIBODY Non-React josé luis Non-React josé luis 08/18/2019 5:52 PM CDT [facility] Comment:Antibodies to HCV no t detected; does not exclude the possibility of exposure to HCV. Blood BLOOD SPECIMEN / Unknown Venipuncture / Unknown 08/18/2019 8:28 AM CDT 08/18/2019 8:28 AM CDT Michell Christopher DO SEND OUTS Final Resul t [facility] [address] [place] [address], [place] from Last 3 Months or Most Recently Relevant to Health Maintenance Insurance [facility] * Guarantor: KELBY NEUMANN [employer] Account Type Relation to Patient Date of Phone Billing Address Occ [employer] Employer [address] [place] [address] Advance Directives * Full Code (Latest Code Status on File) Date Activated Date Inactivated Comments 09/01/2021 12:50 PM 09/02/2021 2:17 PM Question Answer Comments Code Status Discussion: Not Discussed * Full Code Date Activated Date Inactivated Comments 09/01/2021 7:45 AM 09/01/2021 12:50 PM Question Answer Comments Code Status Discussion: Not Discussed * Full Code Date Activated Date Inactivated Comments 07/17/2021 3:39 PM 07/18/2021 5:18 PM Question Answer Comments Code Status Discussion: Not Discussed * Full Code Date Activated Date Inactivated Comments 07/17/2021 9:13 AM 07/17/2021 3:39 PM Question Answer Comments Code Status Discussion: Not Discussed * Full Code Date Activated Date Inactivated Comments 06/06/2021 10:33 AM 06/06/2021 3:21 PM Please verify with the patient. Question Answer Comments Code Status Discussion: Unable to Assess Preferences, Provider to review later Care Teams Textile Converter Relationship Specialty Start Date End Date Michell [place] [address] PCP - General Family Practice 08/04/13
[2024-11-01 10:54] LABS: Basophils Absolute Auto 0.02 K/uL (0.00-0.30); Basophils Percent Auto 0.4 % (0.0-3.0); Eosinophils Absolute Auto 0.16 K/uL (0.00-0.50); Eosinophils Percent Auto 3.1 % (0.0-7.0); Hematocrit* 38.7 % (33.0-51.0); Hemoglobin* 12.4 gm/dL (12.0-16.0); Immature Granulocytes Abs Auto 0.03 K/uL (0.00-0.30); Immature Granulocytes Pct Auto 0.6 %; Lymphocytes Absolute Auto 1.22 K/uL (0.90-2.90); Lymphocytes Percent Auto 23.6 % (20-44); Mean Corpuscular HGB Conc 32 gm/dL (32-36); Mean Corpuscular Hemoglobin 30 pg (26-34); Mean Corpuscular Volume 94 fL (80-100); Monocytes Percent Auto 8.1 % (0.0-11.0); Neutrophils Absolute Auto 3.31 K/uL (1.7-7.0); Neutrophils Percent Auto 64.2 % (42.0-72.0); Platelet Count* 243 K/uL (140-440); RDW Coefficient of Variation % 14.8 % (11.5-15.5); Red Blood Count* 4.13 m/uL (4.00-5.20); White Blood Count* 5.16 K/uL (4.50-11.00)
[2024-11-01 10:55] LABS: Slide Review Reflex No
[2024-11-01] MEDS: 0.9 % SODIUM CHLORIDE 1000 ml 1,000 ML 6000 ML IV (11:03)
[2024-11-01] MEDS: LORazepam 1 MG TABLET PO (11:03)
[2024-11-01 11:06] LABS: Albumin* 4.3 g/dL (3.3-5.0); Chloride* 103 mmol/L (96-114); Potassium* 4.2 mmol/L (3.6-5.1); Sodium* 141 mmol/L (135-149)
[2024-11-01 11:09] LABS: Alanine Aminotransferase* 30 U/L (4-35); Alkaline Phosphatase* 72 U/L (40-150); Anion Gap 8 mEq/L (7-15); Aspartate Amino Transferase* 38 U/L (12-35); Bilirubin Direct* 0.4 mg/dL (0.0-0.5); Bilirubin Total* 0.8 mg/dL (0.1-1.5); Blood Urea Nitrogen* 21 mg/dL (7-30); Carbon Dioxide* 30 mmol/L (20-32); Creatinine* 1.1 mg/dL (0.5-1.5); Est. Creatinine Clearance* 43.87; Estimated Glomerular Filt Rate 57 ml/min; Total Protein* 8.3 g/dL (6.0-8.3)
[2024-11-01 11:10] LABS: Calcium* 9.6 mg/dL (8.4-10.6); Glucose* 114 mg/dL (60-115)
[2024-11-01 11:12] LABS: C Reactive Protein* 2.5 mg/dL (0.5-1.0)
[2024-11-01] MEDS: ONDANSETRON 2 MG/ML inj 4 MG IVP (11:43)
== END 2024-11-01 11:57 | disposition home or self-care (01) ==
PROVIDERS: Emergency Provider Family Medicine; PCP Family Medicine
DX: R42 Dizziness and giddiness (principal)
CPT/HCPCS: 36415; 70450; 80048; 80076; 85025; 86140; 96374; 99284; 99285; A9270; J2405; J7030